=== PATIENT | male | born 1975 | race Caucasian/White ===

== ENCOUNTER 2021-02-19 11:18 | Outpatient (REF) | payer OTHER, SELFPAY ==
--- NOTE | ~2021-02-19 | XR_ITS ---
EXAMINATION: XR ANKLE, RIGHT CLINICAL INFORMATION: Sprain of ligament of right ankle COMPARISON: None TECHNIQUE: AP, lateral, and mortise views of the right ankle. FINDINGS: Moderate soft tissue swelling is identified lateral to the distal fibula and hindfoot. Ankle mortise is symmetric. The alignment is maintained. Tiny corticated densities are seen inferior to the tip of the lateral malleolus. No additional findings. No acute fracture line XR/XR ankle RT min 3V IMPRESSION: Significant soft tissue swelling. Normal alignment without acute fracture line seen. Tiny corticated densities adjacent to the tip of the lateral malleolus may relate to prior trauma.
== END 2021-02-19 11:19 | disposition home or self-care (01) ==
LOC: HO.HMGCX 11:18
PROVIDERS: PCP Internal Medicine; Visit Provider Physician Assistant Medical
DX: S93.401A Sprain of unspecified ligament of right ankle, initial encounter (principal); S96.911A Strain of unspecified muscle and tendon at ankle and foot level, right foot, initial encounter
CPT/HCPCS: 73610

== ENCOUNTER 2021-07-15 13:39 | Outpatient (REF) | payer OTHER, SELFPAY | END 2021-07-15 13:40 | disposition home or self-care (01) | LOC: HO.LNP 13:39 | PROVIDERS: Visit Provider Nurse Practitioner Family | DX: Z20.822 Contact with and (suspected) exposure to COVID-19 (principal) | CPT/HCPCS: U0003; U0005 ==

== ENCOUNTER 2025-08-29 09:08 | Outpatient (AMB) | payer BC, SELFPAY ==
--- OUTSIDE RECORDS SUMMARY | 2025-08-29 09:10 | XMS_ITS | Clinical Summary ---
Author Organization [facility] Address [address] [place] [address] Care Team Providers Care Manager Practice Name Role Phone Unavailable Primary Care Provider Unavailabl e Surgical History Surgery Date Site/Laterality Comments OTHER SURGICAL HISTORY PROCEDURE: DENIES PREVIOUS SURGERY Medical History Medical History Date Comments Back pain 10/24/2011 DX:Back pain Seasonal allergic rhinitis 10/24/2011 DX:Se asonal allergic rhinitis Family History Relation Name Status Comments Brother Alive Shoulder surg Daughter Alive healthy Father Alive IA, irreg HR no w AICD - SIBS IA AT YOUNG AGE Maternal Grandfather NEUR[employer]FI BROMYTOSIS-[employer] WORKER Maternal Grandmother S/P CVA Mother Alive HTN Paternal Grandfather (Age 42) IA Paternal Grandmother Sister Alive Healthy Son Alive Healthy Social History Tobacco Use Types Packs/Day Years Used Date Smoking Tobacco: Former Cigarettes 1 Q uit: 10/01/2007 Smokeless Tobacco: Current Alcohol Use Standard Drinks/Week Comments Yes 20.8 (1 standard drink = 0.6 oz pure alcohol) Sex and Gender Information Value Date Recorded Sex Assigned at Not on file Legal Sex Male 12:24 AM EST Gender Identity Not on file Sexual Orientation Not on file Obstetrics History Plan of Treatment Health Maintenance Due Date Last Done Comments Hepatitis B Vaccines (1 of 3 - 19+ 3-dose series) 1994 DTaP,Tdap,and Td Vaccines (2 - Td or Tdap) 10/24/2021 10/24/2011 Depression Screening 10/01/2024 COVID-19 Vaccine (1 - 2024-2 6 season) 2025 Influenza Vaccine (#1) 2025 10/24/2011 Pneumococcal Vaccine: 50+ Ye ars (1 of 1 - PCV) 2025 Zoster Vaccines (1 of 2) 2025 RSV Immunization Adult Patie nts (1 - 1-dose 75+ series) 2050 HIB Vaccines Aged Out No longer eligi ble based on patient's age to complete this topic HPV Vaccines Aged Out No longer eligi ble based on patient's age to complete this topic Hepatitis A Vaccines Aged Out No long er eligible based on patient's age to complete this topic IPV Vaccines Aged Out No longer eligi ble based on patient's age to complete this topic MMR Vaccines Aged Out No longer eligi ble based on patient's age to complete this topic Meningococcal ACWY Vaccine Aged Out N o longer eligible based on patient's age to complete this topic Meningococcal B Vaccine Aged Out No l onger eligible based on patient's age to complete this topic RSV Immunization Patients Un barbara 20 months Aged Out No longer eligible b ased on patient's age to complete this topic Varicella Vaccines Aged Out No longer eligible based on patient's age to complete this topic
--- NOTE | 2025-08-29 09:28 | AM.OFFWIN_ITS ---
Intake Vital Signs 08/29/25 09:33 Height 5 ft 9 in Weight 83.915 kg BMI 27.3 BP 152/90 H Blood Pressure Location Rt brachial Position Sitting Respiration 16 Pulse 68 Pulse Source Pulse Oximeter Temp 98.1 F Temp Source Oral Pulse Oximetry (%) 98 Oxygen Delivery Method Room Air Intake Visit Reasons: EP Cough, SOB Intake Note: Pt is here today c/o cough with congestion and SOB [id number] Patient Tobacco Use Status: Former Tobacco user Allergies No Known Allergies Allergy (Verified 08/29/25 09:28) HPI EP Cough, SOB HPI Details Chief Complaint: ?I have had a cough I can?t shake for about five weeks.? History of Present Illness: 50-year-old female presents with a persi stent cough of five weeks? duration. The cough began with a cold that seemed to improve, but cough lingered; patient then felt she ?got another cold.? Partner is currently ill with similar symptoms and is ?behind? patient on the course, suggesting possible transmission from patient. Denies true fevers or chills, though reports nighttime temperature flu ctuations?feeling either very hot or very cold. Associated symptoms include intermittent nausea and diarrhea without vomiting. Reports exertional shortness of breath during practice, with chest tightness and inability to take deep breaths. No chronic medical conditions reported; last interaction with a physician was ?a long time ago.? Reports history of knee pain and prior injuries. No known drug allergies. Uses [facility] as preferred pharmacy. Persistent cough for 5 weeks with exertional dyspnea and chest tightness, likely progressing from viral URI to acute bronchitis with suspected bacterial component. No red-flag symptoms noted. Will initiate symptomatic and anti- inflammatory therapy. Problem #1: Acute bronchitis with persistent cough Assessment: Five-week course; likely post-viral progressing to bacterial. Associated exertional SOB and chest tightness; mild tachycardia on exam. Plan: * Prescribe short course of oral steroids to reduce airway inflammation. * Prescribe inhaler (short-acting bronchodilator) for symptomatic relief and improved airflow. * Pharmacy: [facility]; medications to be ready within 20?30 minutes. Allergies: NKDA (per patient) Differentials * Acute bronchitis (post-viral or bacterial): Most likely given the five-week persistent cough following an initial viral illness, with progression to exertional dyspnea and chest tightness. Exam findings of cough and mild tachycardia support this diagnosis. * Atypical pneumonia: Considered due to persistent cough and exertional symptoms, though absence of high fever, chills, or focal consolidation on exam makes this less likely. * Asthma/reactive airway disease: Exertional shortness of breath and chest tightness could indicate underlying airway hyperreactivity, possibly unmasked or triggered by recent infection. * Post-infectious cough: The duration and onset after a viral illness are consistent with a post-infectious cough, though ongoing exertional symptoms suggest additional pathology. * Upper airway cough syndrome (post-nasal drip): Chronic cough can be due to upper airway irritation, though no specific upper respiratory symptoms (e.g., rhinorrhea, throat clearing) were reported. * Gastroesophageal reflux disease (GERD): GERD can cause chronic cough, but there is no history of heartburn or reflux symptoms provided. * Less likely: COVID-19, pertussis, or other viral lower respiratory tract infection: Considered due to the prolonged cough and possible household transmission, but lack of classic symptoms (e.g., paroxysmal cough, inspiratory whoop, or known COVID-19 exposure) makes these less probable. [facility] Social History Patient Tobacco Use Status: Former Tobacco user Review of Systems Narrative Review of Systems: ? General: No fevers, no chills. ? Respiratory: Persistent cough, exertional shortness of breath, chest tightness, no chest pain reported. ? GI: Nausea, diarrhea; no vomiting. ? Other systems not reviewed. Const All systems reviewed & are unremarkable except as noted in HPI and below Physical Exam Exam Exam: Appearance: Alert.? Oriented X3.? No acute distress.? Head: Normocephalic, atraumatic, no step-offs or deformities Eyes: Pupils equal, round and reactive to light.? Neck: Normal inspection.? Neck supple.? CVS: Normal heart rate and rhythm.? Pulses normal.? Respiratory: No respiratory distress.? Breath sounds mild expiratory wheezing b/l.? Abdomen: Soft and nontender.? Skin: Skin warm and dry.? Normal skin color.? Normal skin turgor.? Extremities: No lower extremity edema.? No calf ttp. 5/5 strength to bilateral upper and lower extremities Neuro: Oriented X 3.? No motor deficit.? No sensory deficit. CN 2-12 intact Vital Signs: Last Vital Signs Temp 98.1 F 08/29/25 09:33 Pulse 68 08/29/25 09:33 Resp 16 08/29/25 09:33 BP 152/90 H 08/29/25 09:33 Pulse Ox 98 08/29/25 09:33 Oxygen Delivery Method Room Air 08/29/25 09:33 BMI result Body Mass Index 27.3 vss Assessment & Plan Assessment & Plan (1) Bronchitis: Code(s): J40 - Bronchitis, not specified as acute or chronic Plan Take your medications as prescribed. If you were prescribed antibiotics today, it is important that you take your medication to their entirety, do not skip any doses, do not finish them early. Follow-up with your primary care provider this week. Return to the emergency department with new or worsening symptoms. In case of emergency call 911 Medications: New prednisone 40 mg (2 x 20 mg) PO DAILY 10 tabs 0RF 5 days doxycycline hyclate 100 mg PO BID 14 caps 0RF 7 days albuterol sulfate 90 mcg/actuation 2 puffs inhalation Q6H PRN 6.7 grams 0RF shortness of breath or wheezing Coding Level of Care Code Est Pt Level 3 (08715) Diagnoses Bronchitis J40
[2025-08-29 09:33] VITALS: BP 152/90; PULSE 68; RESP 16; TEMP 36.7; O2SAT 98; BMI 27.3
== END 2025-08-29 12:26 | disposition home or self-care (01) ==
PROVIDERS: PCP Internal Medicine; Visit Provider Physician Assistant
DX: J40 Bronchitis, not specified as acute or chronic (principal)